=== PATIENT | male | born 1995 | race Caucasian/White ===

== ENCOUNTER 2017-09-28 19:08 | Inpatient (IN) | payer OTHER ==
[~2017-09-28] VITALS: Ht 170.2 cm; Wt 106.3 kg
[2017-09-28 21:15] LABS: HEMATOCRIT 48.3 % (38.0-50.0); HEMOGLOBIN 15.8 G/DL (12.5-16.6); MCH 27.3 PG (29.0-34.0); MCHC 32.7 G/DL (30.0-36.0); MCV 83.4 FL (86-99); PLATELET COUNT 206 K/uL (156-360); RBC DIS.WIDTH-CV 13.2 % (11.8-14.6); RBC DIS.WIDTH-SD 39.7 % (39-53); RED BLOOD COUNT 5.79 M/uL (4.00-5.50); WHITE BLOOD COUNT 19.2 K/uL (4.1-10.2)
[2017-09-28 21:19] LABS: CARBON DIOXIDE (BICARBONATE) 26.7 MEQ/L (20-31)
[2017-09-28 21:28] LABS: ALBUMIN 4.7 g/dL (3.2-4.8); CHLORIDE 105 mEq/L (99-109); POTASSIUM 4.2 mEq/L (3.7-5.4); SODIUM 142 mEq/L (136-147)
[2017-09-28 21:31] LABS: GLUCOSE 148 mg/dL (70-99)
[2017-09-28 21:33] LABS: TOTAL BILIRUBIN 0.7 mg/dL (0.0-1.0)
[2017-09-28 21:34] LABS: SERUM ETHYL ALCOHOL < 10 mg/dL
[2017-09-28 21:35] LABS: ALKALINE PHOSPHATASE 90 IU/L (3-129); CREATININE 0.9 mg/dL (0.6-1.3); GFR ESTIMATE (CALCULATED) > 59 mL/min/ (58.99-99999)
[2017-09-28 21:36] LABS: AST (GOT) 20 IU/L (2-34)
[2017-09-28 21:37] LABS: UREA NITROGEN (BUN) 9 mg/dL (9-23)
[2017-09-28 21:38] LABS: ALT (GPT) 22 IU/L (3-49); SALICYLATE < 5.0 MG/DL (15-30); TROP-I INTERPRETATION NEGATIVE; TROPONIN-I < 0.01 ng/mL (0.0-0.30)
[2017-09-28 21:39] LABS: ACETAMINOPHEN (TYLENOL) < 10 mcg/mL (10-30); CREATINE KINASE 86 IU/L (1-294); LIPASE 16 U/L (1.0-51.0)
[2017-09-28 23:54] LABS: APPEARANCE CLEAR ((CLEAR)); BILIRUBIN NEGATIVE; BLOOD NEGATIVE; COLOR YELLOW ((YELLOW)); GLUCOSE (STRIP) NEGATIVE; KETONES 5; LEUKOCYTES TRACE; NITRITE NEGATIVE; PROTEIN (STRIP) 30; SPECIFIC GRAVITY 1.024 (1.000-1.030)
[2017-09-29 00:02] LABS: BACTERIA NONE SEEN /HPF; CALCIUM OXALATE CRYSTALS 1+ /HPF; EPITHELIAL CELLS RARE /HPF; MUCUS 1+ /LPF; UCUL ADDED? NO; WHITE BLOOD CELLS 0-5 /HPF (0-5)
[2017-09-29 00:25] LABS: AMPHETAMINE NEGATIVE (500 ng/mL); BARBITURATES NEGATIVE (200 ng/mL); BENZODIAZEPINES PRESUMPTIVE POSITIVE (150 ng/mL); BUPRENORPHINE NEGATIVE (10 ng/mL); COCAINE NEGATIVE (150 ng/mL); METHADONE NEGATIVE (200 ng/mL); METHAMPHETAMINE NEGATIVE (500 ng/mL); OPIATES (MORPHINE) NEGATIVE (100 ng/mL); OXYCODONE NEGATIVE (100 ng/mL); PHENCYCLIDINE NEGATIVE (25 ng/mL); PROPOXYPHENE NEGATIVE (300 ng/mL); THC CANNABINOIDS NEGATIVE (50 ng/mL); TRICYCLIC ANTIDEPRESSANTS PRESUMPTIVE POSITIVE (300 ng/mL)
[2017-09-29 00:51] LABS: BENZODIAZEPINES, URINE SCREEN POSITIVE (200 ng/mL)
[2017-09-29] MEDS ORDERED: CYMBALTA20 MG PO (03:57)
[2017-09-29] MEDS ORDERED: ATIVAN0.5 MG PO (03:58)
[2017-09-29] MEDS ORDERED: AMBIEN CR12.5 MG PO (03:59)
[2017-09-29] MEDS ORDERED: DEPO-TESTOS100 MG/ML IM (04:02)
[2017-09-29 09:51] VITALS: BP 117/72
[2017-09-29 16:13] VITALS: BP 119/63
[2017-09-30] MEDS ORDERED: VENLAFAXINE HCL75 M3 PO (08:08)
[2017-09-30 09:03] VITALS: BP 123/74
== END 2017-09-30 12:05 | disposition home or self-care (01) | DRG 881 ==
LOC: EME 19:08 → EDOF 09-29 02:06 → ENRESERV 09-29 03:00 → 1WEST 09-29 03:28
PROVIDERS: Emergency Medicine
DX: F32.9 Major depressive disorder, single episode, unspecified (principal); F43.25 Adjustment disorder with mixed disturbance of emotions and conduct; R00.0 Tachycardia, unspecified; R45.851 Suicidal ideations; F41.9 Anxiety disorder, unspecified; Z90.13 Acquired absence of bilateral breasts and nipples; F64.0 Transsexualism
CPT/HCPCS: 80053; 81003; 82550; 82803; 83605; 83690; 83735; 84484; 84999; 85027; 90839; 93005; 97150 GO; 97165 GO; 99281; 99285; G0480; J7120